=== PATIENT | female | born 1950 | race American Indian/Alaskan Native ===

== ENCOUNTER 2017-02-20 19:07 | Emergency (ER) | payer OTHER ==
[2017-02-20] MEDS ORDERED: TYLENOL PO ONE (19:41)
--- NOTE | 2017-02-20 20:20 | Emergency Department Report ---
HPI - General Chief Complaint: Fall Time Seen by Provider: 02/20/17 19:58 - HPI HPI: This is a 66-year-old female presents to the emergency department from home with a complaint of a slip and fall just prior to presentation. The patient was cooking in the kitchen when all of a sudden her legs started to slip out from under her, away from the body, causing her to do a split. She eventually fell against the wall to her side. She did not hit her head or have any loss of consciousness. She has pain to the upper mid thighs bilaterally. She did not take anything for her symptoms prior to presentation. She normally walks well without any type of assistance but since the incident she is having some pain with ambulation. She has a history of hypertension and hyperlipidemia and has been out of her medications for the past 2 weeks. ED Past Medical Hx - Past Medical History Hx Hypertension: Yes - Surgical History Hx Cholecystectomy: Yes Additional Surgical History: abd surgery - Social History Smoking Status: Never Smoker Substance Use Type: None - Medications Home Medications: Home Medications Medication Instructions Recorded Confirmed Last Taken Type Acetaminophen/Codeine [Tylenol 1 tab PO Q6H PRN #10 tab 02/20/17 Unknown Rx /Codeine # 3 tab] Amlodipine Besylate [Norvasc] 5 mg PO QDAY #30 tablet 02/20/17 Unknown Rx Rosuvastatin (Nf) [Crestor] 10 mg PO QHS #30 tablet 02/20/17 Unknown Rx ED Review of Systems ROS: Stated complaint: FALL Other details as noted in HPI Comment: All other systems reviewed and negative Constitutional: denies: chills, fever Eyes: denies: eye pain, eye discharge, vision change ENT: denies: ear pain, throat pain Respiratory: denies: cough, shortness of breath, wheezing Cardiovascular: denies: chest pain, palpitations Gastrointestinal: denies: abdominal pain, nausea, diarrhea Genitourinary: denies: urgency, dysuria, discharge Musculoskeletal: arthralgia, myalgia Skin: denies: rash, lesions Neurological: denies: headache, weakness, paresthesias Physical Exam - Physical Exam Vital Signs: Vital Signs 02/20/17 19:27 Temperature 98.2 F Pulse Rate 84 Respiratory 20 Rate Blood Pressure 169/81 O2 Sat by Pulse 98 Oximetry Physical Exam: GENERAL: The patient is well-developed well-nourished. HENT: Normocephalic. Atraumatic. Patient has moist mucous membranes. EYES: Extraocular motions are intact. Pupils equal reactive to light bilaterally. NECK: Supple. Trachea is midline. CHEST/LUNGS: Clear to auscultation. There is no respiratory distress noted. HEART/CARDIOVASCULAR: Regular. There is no tachycardia. There is no murmur. ABDOMEN: Abdomen is soft, nontender. Patient has normal bowel sounds. There is no abdominal distention. SKIN: Skin is warm and dry. NEURO: The patient is awake, alert, and oriented. The patient is cooperative. The patient has no focal neurologic deficits. The patient has normal speech. MUSCULOSKELETAL: There is some tenderness palpation to the circumferential mid thigh bilaterally but no obvious deformity. Neurovascularly intact. ED Course Vital Signs 02/20/17 19:27 Temperature 98.2 F Pulse Rate 84 Respiratory 20 Rate Blood Pressure 169/81 O2 Sat by Pulse 98 Oximetry ED Medical Decision Making - Radiology Data Radiology results: image reviewed interpreted by me: X-ray of the bilateral femur and pelvis does not show any fracture, dislocation or any acute process. - Medical Decision Making The patient had a fall in which she basically did a split and then began having pain in the upper to mid thighs bilaterally. It appears consistent with a muscle pull or a strain of the groin. X-rays were done of the pelvis and bilateral femurs which did not show any fractures, dislocations or any acute processes. Patient had some hypertension but has not taken her blood pressure medications about 2 weeks that she has been out of them. The patient was given crutches and was able to display the ability to get up and ambulate using the crutches and therefore should be able to complete her ADLs. Therefore I feel that she is safe to go home and was given a referral for an orthopedist that she may need MRI in the future if she does not show enough improvement. She will return to the ER with any worsening of her symptoms or any acute distress. - Differential Diagnosis fracture, dislocation, subluxation, muscle sprain/strain, muscle tear Critical Care Time: No Critical care attestation.: If time is entered above; I have spent that time in minutes in the direct care of this critically ill patient, excluding procedure time. ED Disposition Clinical Impression: Bilateral thigh pain, Noncompliance with medication regimen Fall Qualifiers: Encounter type: initial encounter Qualified Code(s): W19.XXXA - Unspecified fall, initial encounter Groin pain Qualifiers: Laterality: unspecified laterality Qualified Code(s): R10.30 - Lower abdominal pain, unspecified Hypertension Qualifiers: Hypertension type: essential hypertension Qualified Code(s): I10 - Essential ( primary) hypertension Disposition: TO HOME OR SELFCARE Is pt being admited?: No Condition: Stable Instructions: Crutch Instructions (ED), Fall Prevention for Older Adults (ED), Hypertension (ED), Arthralgia (ED), Groin Pain (ED) Additional Instructions: Please follow-up with your primary care physician in the next few days. I have given a referral for a local orthopedist, Dr. Murphy, to follow-up regarding your leg pain. Return to the emergency Department with any worsening of your symptoms or any acute distress. You have been prescribed a medication that is sedating and therefore should not be taken prior to driving, working, and responsible for children and in no way should be mixed with alcohol of any quantity. Prescriptions: Rosuvastatin (Nf) [Crestor] 10 mg PO QHS #30 tablet Acetaminophen/Codeine [Tylenol /Codeine # 3 tab] 1 tab PO Q6H PRN #10 tab PRN Reason: Pain Amlodipine Besylate [Norvasc] 5 mg PO QDAY #30 tablet Referrals: AASHISH BRADSHAW MD [Primary Care Provider] - 3-5 Days Time of Disposition: 22:53
[2017-02-20] MEDS ORDERED: NORVASC PO ONE (21:33)
--- NOTE | 2017-02-20 21:39 | XRay Report ---
FINAL REPORT EXAM: XR FEMUR 2+V LT HISTORY: FALL COMPARISON: None available. Two views of the left femur obtained. No acute fracture dislocation. Left hip joint space preserved. Mild narrowing of the medial joint space compartment of the knee and mild patellar osteophyte. IMPRESSION: No acute bony abnormality.
--- NOTE | 2017-02-20 21:44 | XRay Report ---
FINAL REPORT EXAM: XR PELVIS 1-2V HISTORY: fall COMPARISON: Left femur from the same date. FINDINGS: AP view of the pelvis obtained. Bilateral hip and SI joint spaces are preserved. Bowel gas partially obscures the sacrum. No acute fracture dislocation. Pelvic ring is intact. IMPRESSION: No acute bony abnormality.
--- NOTE | 2017-02-20 21:45 | XRay Report ---
FINAL REPORT EXAM: XR FEMUR 2+V RT HISTORY: right leg pain COMPARISON: Plain films of the pelvis from the same date. FINDINGS: Two views of right femur obtained. Bony structures are intact. Joint spaces are preserved. No acute fracture dislocation. IMPRESSION: No acute bony abnormality.
[2017-02-20 22:26] VITALS: BP 177/60
== END 2017-02-20 23:01 | disposition home or self-care (01) ==
LOC: ED 19:07
DX: M79.651 Pain in right thigh (principal); M79.652 Pain in left thigh; R10.30 Lower abdominal pain, unspecified; Z91.14 Patient's other noncompliance with medication regimen; W19.XXXA Unspecified fall, initial encounter; Z90.49 Acquired absence of other specified parts of digestive tract; Z98.890 Other specified postprocedural states
CPT/HCPCS: 72170; 99284